=== PATIENT | male | born 1955 | race Caucasian/White ===

== ENCOUNTER 2018-10-24 15:37 | Inpatient (IN) | payer MEDICAID ==
[2018-10-24 16:14] LABS: AADO2 Arterial 124.2 mmHg (7.0-24.0); Allen Test ACCEPTAB; Arterial Base Excess 6.8 mmol/L (-3.0-3); Arterial Blood Gas Oxygen Sat 90.2 mmHG (95.0-98.0); Arterial COHb 2.6 % (0.0-3.0); Arterial Fraction of Oxyhgb 87.6 % (93.0-99.0); Arterial MetHb 0.3 % (0.0-1.5); Arterial pCO2 61.9 mmhg (35-45); MODE NASAL CANNULA; Site Left Radial
[2018-10-24 16:18] LABS: ADD MAN DIFF? NO
[2018-10-24] MEDS: ALBUTEROL 0.5% (NEB) 2.5 MG/0.5 ML AMP INH (16:19)
[2018-10-24] MEDS: IPRATROPIUM (NEB) 0.5 MG/2.5 ML AMP INH (16:19)
[2018-10-24 16:24] LABS: BASOPHIL # 0.1 10^3/ul (0.0-0.1); EOSINOPHILS # 0.1 10^3/ul (0.0-0.5); EOSINOPHILS % 0.4 % (0.0-7.0); HEMATOCRIT 55.2 % (42.0-52.0); HEMOGLOBIN 17.5 g/dl (14.0-18.0); LYMPHOCYTES # 3.7 10^3/ul (0.8-2.9); LYMPHOCYTES % 28.7 % (15.0-51.0); MEAN CORPUSCULAR HEMOGLOBIN 30.3 pg (29.0-33.0); MEAN CORPUSCULAR HGB CONC 31.7 g/dl (32.0-37.0); MEAN CORPUSCULAR VOLUME 95.7 fl (82.0-101.0); MEAN PLATELET VOLUME 10.7 fl (7.4-10.4); MONOCYTE # 1.4 10^3/ul (0.3-0.9); NEUTROPHIL # 7.3 10^3/ul (1.6-7.5); NEUTROPHILS % 56.7 % (39.0-77.0); NUCLEATED RED BLOOD CELLS # 0.1 10^3/ul (0.0-0.0); NUCLEATED RED BLOOD CELLS% 0.4 /100WBC (0.0-0.0); PLATELET COUNT 246 10^3/UL (140-415); POSITIVE DIFF @See below; RED BLOOD COUNT 5.77 10^6/ul (4.70-6.10); RED CELL DISTRIBUTION WIDTH 13.6 % (11.5-14.5)
[2018-10-24] MEDS: METHYLPREDNISOLONE 125 MG INJ IV (16:27)
[2018-10-24 16:38] LABS: ALANINE AMINOTRANSFERASE 42 IU/L (13-69); ALBUMIN 4.2 g/dl (3.3-4.9); ALKALINE PHOSPHATASE 65 IU/L (42-121); ANION GAP 11 (5-13); ASPARTATE AMINO TRANSFERASE 43 IU/L (15-46); BILIRUBIN,INDIRECT 0.6 mg/dl (0-1.1); BILIRUBIN,TOTAL 0.6 mg/dl (0.2-1.3); BLOOD UREA NITROGEN 29 mg/dl (7-20); CALCIUM 8.9 mg/dl (8.4-10.2); CARBON DIOXIDE 35 mmol/L (21-31); CHLORIDE 93 mmol/L (97-110); CREATININE 0.78 mg/dl (0.61-1.24); Estimated GFR > 60 mL/min (>60); GLUCOSE 107 mg/dl (70-220); POTASSIUM 4.3 mmol/L (3.5-5.1); SODIUM 139 mmol/L (135-144)
[2018-10-24 16:43] LABS: INR 0.89; PROTIME 12.2 Sec (11.9-14.9)
[2018-10-24 16:47] LABS: B-TYPE NATRIURETIC PEPTIDE 5640 PG/ML (0-125)
[2018-10-24 16:51] LABS: TROPONIN-I 0.047 ng/ml (0.000-0.120)
[2018-10-24 17:38] LABS: ANISOCYTOSIS 1+ (0-0); BASOPHIL #M 0.1 10^3/ul (0.0-0.0); BASOPHILS % (M) 1 % (0-2); EOSINOPHILS % (M) 1 % (0-7); ERYTHROBLAST% (NRBC) (M) 2 % (0-0); GIANT THROMBO% (M) 1 % (0-0); LYMPHOCYTES #M 3.6 10^3/ul (0.8-2.9); LYMPHOCYTES % (M) 28 % (15-51); METAMYELOCYTES #M 0.1 10^3/ul (0.0-0.0); METAMYELOCYTES %M 1 % (0-0); MICROCYTOSIS 1+ (0-0); MONOCYTE #M 0.6 10^3/ul (0.3-0.9); MONOCYTES % (M) 5 % (0-11); PLASMA CELLS #M 0.1 10^3/ul (0.0-0.0); PLASMAC%(M) 1 % (0); PLATELET ESTIMATE NORMAL; POLYCHROMASIA 1+ (0-0); REACTIVE LYMPHOCYTES #M 0.2 10^3/ul (0.0-0.0); REACTIVE LYMPHOCYTES% (M) 2 % (0-0); SEGMENTED NEUTROPHILS (M) % 61 % (39-77); SMUDGE%M 7 % (0-0)
[2018-10-24] MEDS ORDERED: FUROSEMIDE 40 MG INJ (18:08)
[2018-10-24] MEDS: FUROSEMIDE 40 MG INJ IV (18:15)
[2018-10-24] MEDS: LEVOFLOXACIN 750MG/D5W (PMX) 150 ML IVPB (19:07)
[2018-10-24] MEDS ORDERED: ONDANSETRON 4 MG INJ IV ×2 (20:00→20:30)
[2018-10-24] MEDS ORDERED: ACETAMINOPHEN 325 MG TAB PO (20:00)
[2018-10-24] MEDS ORDERED: NACL 0.9% 3 ML SYG IV (20:30)
[2018-10-24] MEDS ORDERED: MAGNESIUM HYDROXIDE 30ML CUP PO (20:30)
[2018-10-24] MEDS ORDERED: LEVALBUTEROL (NEB) 1.25 MG/0.5 ML AMP HHN (20:30)
[2018-10-24] MEDS ORDERED: DOCUSATE SODIUM 100 MG CAP PO (20:30)
[2018-10-24] MEDS: IPRATROPIUM (NEB) 0.5 MG/2.5 ML AMP HHN (21:30)
[2018-10-24] MEDS: LEVALBUTEROL (NEB) 1.25 MG/0.5 ML AMP HHN (21:30)
[2018-10-24 22:36] LABS: CREATINE KINASE 63 IU/L (23-200)
[2018-10-24 22:38] LABS: LACTIC ACID 3.6 mmol/L (0.5-2.0)
[2018-10-24 22:48] LABS: CK INDEX 7.9; CK-MB 4.96 ng/ml (0.0-2.4); TROPONIN-I 0.042 ng/ml (0.000-0.120)
[2018-10-24] MEDS: ALBUMIN HUMAN 25% 100 ML IV (23:13)
[2018-10-24] MEDS: HEPARIN 5,000 UNIT/1 ML VIAL SC (23:27)
[2018-10-25] MEDS: LEVALBUTEROL (NEB) 1.25 MG/0.5 ML AMP HHN ×3 (00:24→08:36)
[2018-10-25] MEDS: IPRATROPIUM (NEB) 0.5 MG/2.5 ML AMP HHN ×3 (00:24→08:36)
[2018-10-25 02:16] LABS: AADO2 Arterial 368.1 mmHg (7.0-24.0); Allen Test ACCEPTAB; Arterial Blood Gas Oxygen Sat 97.8 mmHG (95.0-98.0); Arterial COHb 0.8 % (0.0-3.0); Arterial Fraction of Oxyhgb 96.6 % (93.0-99.0); Arterial HCO3 35.5 mmol/L (22.0-26.0); Arterial MetHb 0.4 % (0.0-1.5); Arterial pCO2 78.3 mmhg (35-45); Blood Gas IEPAP 15/5; Blood Gas PS 10; MODE MASK - BIPAP; Site Right Radial
[2018-10-25 03:09] LABS: ADD MAN DIFF? NO
[2018-10-25 03:15] LABS: WHITE BLOOD COUNT 8.3 10^3/ul (4.8-10.8)
[2018-10-25 03:15] LABS: BASOPHILS % 0.5 % (0.0-2.0); HEMATOCRIT 52.2 % (42.0-52.0); HEMOGLOBIN 16.4 g/dl (14.0-18.0); LYMPHOCYTES # 1.1 10^3/ul (0.8-2.9); LYMPHOCYTES % 13.4 % (15.0-51.0); MEAN CORPUSCULAR HEMOGLOBIN 30.1 pg (29.0-33.0); MEAN CORPUSCULAR HGB CONC 31.4 g/dl (32.0-37.0); MEAN CORPUSCULAR VOLUME 95.8 fl (82.0-101.0); MEAN PLATELET VOLUME 10.2 fl (7.4-10.4); MONOCYTE # 0.2 10^3/ul (0.3-0.9); NEUTROPHIL # 6.7 10^3/ul (1.6-7.5); NEUTROPHILS % 80.9 % (39.0-77.0); NUCLEATED RED BLOOD CELLS% 0.4 /100WBC (0.0-0.0); PLATELET COUNT 238 10^3/UL (140-415); RED BLOOD COUNT 5.45 10^6/ul (4.70-6.10); RED CELL DISTRIBUTION WIDTH 13.8 % (11.5-14.5)
[2018-10-25 03:30] LABS: LACTIC ACID 2.4 mmol/L (0.5-2.0)
[2018-10-25 03:39] LABS: CREATINE KINASE 62 IU/L (23-200)
[2018-10-25 03:40] LABS: MAGNESIUM 1.8 mg/dl (1.7-2.5)
[2018-10-25 03:40] LABS: CHOL/HDL RATIO 4.5 RATIO; CHOLESTEROL 156 mg/dl (100-200); HDL CHOLESTEROL 34 mg/dl (30-78); LDL CHOLESTEROL,CALCULATED 97 mg/dl; TRIGLYCERIDES 124 mg/dl (0-149)
[2018-10-25 03:43] LABS: HEMOGLOBIN A1C 5.8 % (0-5.9)
[2018-10-25 03:50] LABS: CK INDEX 7.1; TROPONIN-I 0.031 ng/ml (0.000-0.120)
[2018-10-25 04:04] LABS: CK-MB 4.42 ng/ml (0.0-2.4)
[2018-10-25 04:22] LABS: ALANINE AMINOTRANSFERASE 37 IU/L (13-69); ALBUMIN 4.1 g/dl (3.3-4.9); ALBUMIN/GLOBULIN RATIO 1.17; ALKALINE PHOSPHATASE 44 IU/L (42-121); ANION GAP 12 (5-13); ASPARTATE AMINO TRANSFERASE 37 IU/L (15-46); BILIRUBIN,INDIRECT 0.3 mg/dl (0-1.1); BILIRUBIN,TOTAL 0.3 mg/dl (0.2-1.3); BLOOD UREA NITROGEN 29 mg/dl (7-20); CALCIUM 8.9 mg/dl (8.4-10.2); CARBON DIOXIDE 35 mmol/L (21-31); CHLORIDE 94 mmol/L (97-110); CREATININE 0.89 mg/dl (0.61-1.24); Estimated GFR > 60 mL/min (>60); GLUCOSE 198 mg/dl (70-220); POTASSIUM 4.6 mmol/L (3.5-5.1); SODIUM 141 mmol/L (135-144); TOTAL PROTEIN 7.6 g/dl (6.1-8.1)
[2018-10-25] MEDS: MAGNESIUM SULFATE 2 GM/50 ML 50 ML IVPB (04:35)
[2018-10-25 04:45] LABS: THYROID STIMULATING HORMONE 0.389 MIU/L (0.465-4.680)
[2018-10-25 05:24] LABS: AADO2 Arterial 409.9 mmHg (7.0-24.0); Allen Test ACCEPTAB; Arterial Base Excess 5.4 mmol/L (-3.0-3); Arterial Blood Gas Oxygen Sat 94.5 mmHG (95.0-98.0); Arterial COHb 0.3 % (0.0-3.0); Arterial Fraction of Oxyhgb 93.8 % (93.0-99.0); Arterial HCO3 35.6 mmol/L (22.0-26.0); Arterial MetHb 0.4 % (0.0-1.5); Arterial pCO2 76.6 mmhg (35-45); Blood Gas IEPAP 18/6; Blood Gas PS 12; MODE MASK - BIPAP; Site Right Radial
[2018-10-25] MEDS: PANTOPRAZOLE (EC) 40 MG TAB PO (06:32)
[2018-10-25] MEDS: HEPARIN 5,000 UNIT/1 ML VIAL SC ×3 (06:39→21:49)
[2018-10-25] MEDS: ASPIRIN (EC) 81 MG TAB PO (08:07)
[2018-10-25] MEDS: predniSONE 20 MG TAB PO (08:07)
[2018-10-25] MEDS: BENAZEPRIL 40 MG TAB PO (08:07)
[2018-10-25] MEDS: FUROSEMIDE 40 MG INJ IV ×2 (08:08→17:46)
[2018-10-25 09:02] LABS: CREATINE KINASE 61 IU/L (23-200)
[2018-10-25 09:15] LABS: CK INDEX 6.6; TROPONIN-I 0.029 ng/ml (0.000-0.120)
[2018-10-25 09:28] LABS: CK-MB 4.05 ng/ml (0.0-2.4)
[2018-10-25 10:12] LABS: FREE T4 (FREE THYROXINE) 1.51 ng/dl (0.78-2.44)
[2018-10-25 11:00] LABS: AADO2 Arterial 362.8 mmHg (7.0-24.0); Allen Test ACCEPTAB; Arterial Base Excess 8.3 mmol/L (-3.0-3); Arterial Blood Gas Oxygen Sat 97.7 mmHG (95.0-98.0); Arterial COHb 0.4 % (0.0-3.0); Arterial Fraction of Oxyhgb 96.9 % (93.0-99.0); Arterial MetHb 0.4 % (0.0-1.5); Arterial pCO2 90.2 mmhg (35-45); Blood Gas IEPAP 24/8; Blood Gas PS 16; MODE MASK - BIPAP; Site Right Radial
[2018-10-25] MEDS ORDERED: ALBUTEROL 0.083% (NEB) 2.5 MG/3 ML AMP HHN (11:30)
[2018-10-25] MEDS: METOPROLOL (XL) 25 MG TAB PO ×3 (11:48→21:37)
[2018-10-25] MEDS: METHYLPREDNISOLONE 40 MG INJ IV ×2 (11:48→21:36)
[2018-10-25] MEDS: LEVOFLOXACIN 750MG/D5W (PMX) 150 ML IVPB (12:00)
[2018-10-25] MEDS: ALBUTEROL/IPRATROPIUM (NEB) 3 ML AMP HHN ×3 (12:50→20:02)
[2018-10-25] MEDS: MAGNESIUM SULFATE 1 GM/D5W 100 ML IVPB (13:03)
[2018-10-25] MEDS ORDERED: MAGNESIUM SULFATE 3 GM in DEXTROSE 5% 100 ML IVPB (14:00)
[2018-10-25 14:10] LABS: AADO2 Arterial 116.9 mmHg (7.0-24.0); Allen Test ACCEPTAB; Arterial Base Excess 7.5 mmol/L (-3.0-3); Arterial COHb 0.5 % (0.0-3.0); Arterial Fraction of Oxyhgb 87.3 % (93.0-99.0); Arterial MetHb 0.3 % (0.0-1.5); Arterial pCO2 65.8 mmhg (35-45); Blood Gas IEPAP 24/8; Blood Gas PS 16; MODE MASK - BIPAP; Site Right Radial
[2018-10-25] MEDS: CEFTRIAXONE 2 GM/50 ML (PMX) 50 ML IVPB (14:19)
[2018-10-25 16:29] LABS: ADD UMIC YES; UR BILIRUBIN (Dip) NEGATIVE (NEGATIVE); UR BLOOD (Dip) NEGATIVE (NEGATIVE); UR CLARITY CLEAR (CLEAR); UR COLOR STRAW (YELLOW); UR GLUCOSE (Dip) NEGATIVE (NEGATIVE); UR KETONES (Dip) NEGATIVE (NEGATIVE); UR LEUKOCYTE ESTERASE (Dip) NEGATIVE Leu/ul (NEGATIVE); UR NITRITE (Dip) NEGATIVE (NEGATIVE); UR TOTAL PROTEIN (Dip) 1+ mg/dl (NEGATIVE); UR UROBILINOGEN (Dip) 0.2 E.U./dL mg/dL (NEGATIVE); URINE PH (Dip) 6 (5.0-9.0)
[2018-10-25 16:30] LABS: UR ASCORBIC ACID 40 mg/dL (NEGATIVE)
[2018-10-25 16:41] LABS: UR RBC 0 /HPF (0-5); UR WBC 1 /HPF (0-5)
[2018-10-25] MEDS: ACETAMINOPHEN 325 MG TAB PO (18:50)
[2018-10-25] MEDS: ATORVASTATIN 20 MG TAB PO (21:37)
[2018-10-26] MEDS: ALBUTEROL/IPRATROPIUM (NEB) 3 ML AMP HHN ×6 (01:15→20:17)
[2018-10-26 05:17] LABS: ADD MAN DIFF? NO
[2018-10-26 05:24] LABS: WHITE BLOOD COUNT 16.7 10^3/ul (4.8-10.8)
[2018-10-26 05:24] LABS: BASOPHILS % 0.2 % (0.0-2.0); HEMATOCRIT 52.8 % (42.0-52.0); HEMOGLOBIN 16.6 g/dl (14.0-18.0); LYMPHOCYTES # 1.3 10^3/ul (0.8-2.9); LYMPHOCYTES % 7.9 % (15.0-51.0); MEAN CORPUSCULAR HEMOGLOBIN 30.6 pg (29.0-33.0); MEAN CORPUSCULAR HGB CONC 31.4 g/dl (32.0-37.0); MEAN CORPUSCULAR VOLUME 97.4 fl (82.0-101.0); MEAN PLATELET VOLUME 10.8 fl (7.4-10.4); MONOCYTE # 1.2 10^3/ul (0.3-0.9); MONOCYTES % 7.1 % (0.0-11.0); NEUTROPHIL # 13.8 10^3/ul (1.6-7.5); NUCLEATED RED BLOOD CELLS% 0.1 /100WBC (0.0-0.0); PLATELET COUNT 259 10^3/UL (140-415); RED BLOOD COUNT 5.42 10^6/ul (4.70-6.10)
[2018-10-26] MEDS: PANTOPRAZOLE (EC) 40 MG TAB PO (05:51)
[2018-10-26] MEDS: HEPARIN 5,000 UNIT/1 ML VIAL SC ×3 (05:51→21:07)
[2018-10-26] MEDS: FUROSEMIDE 40 MG INJ IV ×2 (05:51→17:17)
[2018-10-26 05:56] LABS: ALANINE AMINOTRANSFERASE 36 IU/L (13-69); ALBUMIN 3.7 g/dl (3.3-4.9); ALBUMIN/GLOBULIN RATIO 1.08; ALKALINE PHOSPHATASE 54 IU/L (42-121); ANION GAP 10 (5-13); ASPARTATE AMINO TRANSFERASE 30 IU/L (15-46); BILIRUBIN,INDIRECT 0.3 mg/dl (0-1.1); BILIRUBIN,TOTAL 0.3 mg/dl (0.2-1.3); BLOOD UREA NITROGEN 39 mg/dl (7-20); CALCIUM 8.9 mg/dl (8.4-10.2); CARBON DIOXIDE 37 mmol/L (21-31); CHLORIDE 92 mmol/L (97-110); CREATININE 1.18 mg/dl (0.61-1.24); Estimated GFR > 60 mL/min (>60); GLUCOSE 134 mg/dl (70-220); POTASSIUM 4.8 mmol/L (3.5-5.1); SODIUM 139 mmol/L (135-144); TOTAL PROTEIN 7.1 g/dl (6.1-8.1)
[2018-10-26] MEDS: ACETAMINOPHEN 325 MG TAB PO (06:38)
[2018-10-26] MEDS: METHYLPREDNISOLONE 40 MG INJ IV ×2 (08:26→21:03)
[2018-10-26] MEDS: ASPIRIN (EC) 81 MG TAB PO (08:27)
[2018-10-26] MEDS: BENAZEPRIL 10 MG TAB PO ×2 (08:27→21:08)
[2018-10-26] MEDS: MONTELUKAST 10 MG TAB PO ×2 (08:27→21:07)
[2018-10-26] MEDS: SPIRONOLACTONE 25 MG TAB PO (08:27)
[2018-10-26] MEDS: METOPROLOL (XL) 25 MG TAB PO ×2 (08:28→21:08)
[2018-10-26 08:33] LABS: AADO2 Arterial 118.7 mmHg (7.0-24.0); Allen Test ACCEPTAB; Arterial Base Excess 9.1 mmol/L (-3.0-3); Arterial Blood Gas Oxygen Sat 90.6 mmHG (95.0-98.0); Arterial COHb 0.4 % (0.0-3.0); Arterial Fraction of Oxyhgb 90.1 % (93.0-99.0); Arterial HCO3 37.6 mmol/L (22.0-26.0); Arterial MetHb 0.2 % (0.0-1.5); Arterial pCO2 65.5 mmhg (35-45); MODE NASAL CANNULA; Site Right Radial
[2018-10-26] MEDS: FLUTICASONE/VILANTEROL 100-25 INH (10:50)
[2018-10-26] MEDS: TIOTROPIUM 18 MCG CAPSULE INHA DEV INH (10:52)
[2018-10-26 11:08] LABS: HEPATITIS B SURFACE ANTIGEN NEGATIVE (NEGATIVE)
[2018-10-26 11:25] LABS: HEPATITIS C VIRAL ANTIBODY NEGATIVE (NEGATIVE)
[2018-10-26] MEDS: CEFTRIAXONE 2 GM/50 ML (PMX) 50 ML IVPB (14:37)
[2018-10-26] MEDS: MAGNESIUM SULFATE 2 GM/50 ML 50 ML IVPB (16:18)
[2018-10-26] MEDS: ATORVASTATIN 20 MG TAB PO (21:07)
[2018-10-27] MEDS: ALBUTEROL/IPRATROPIUM (NEB) 3 ML AMP HHN ×6 (00:32→20:06)
[2018-10-27] MEDS: ACETAMINOPHEN 325 MG TAB PO ×3 (01:24→22:16)
[2018-10-27] MEDS: PANTOPRAZOLE (EC) 40 MG TAB PO (05:48)
[2018-10-27] MEDS: FUROSEMIDE 40 MG INJ IV ×2 (05:49→18:06)
[2018-10-27] MEDS: HEPARIN 5,000 UNIT/1 ML VIAL SC ×3 (06:02→20:45)
[2018-10-27 08:10] LABS: ADD MAN DIFF? NO
[2018-10-27 08:22] LABS: WHITE BLOOD COUNT 19.5 10^3/ul (4.8-10.8)
[2018-10-27 08:22] LABS: ABNORMAL IP MESSAGE 1; BASOPHILS % 0.2 % (0.0-2.0); HEMATOCRIT 55.1 % (42.0-52.0); HEMOGLOBIN 17.4 g/dl (14.0-18.0); LYMPHOCYTES # 1.4 10^3/ul (0.8-2.9); MEAN CORPUSCULAR HEMOGLOBIN 30.4 pg (29.0-33.0); MEAN CORPUSCULAR HGB CONC 31.6 g/dl (32.0-37.0); MEAN CORPUSCULAR VOLUME 96.2 fl (82.0-101.0); MEAN PLATELET VOLUME 10.8 fl (7.4-10.4); MONOCYTE # 1.8 10^3/ul (0.3-0.9); NEUTROPHIL # 16.1 10^3/ul (1.6-7.5); NEUTROPHILS % 82.3 % (39.0-77.0); PLATELET COUNT 297 10^3/UL (140-415); POSITIVE DIFF @See below; RED BLOOD COUNT 5.73 10^6/ul (4.70-6.10); RED CELL DISTRIBUTION WIDTH 14.3 % (11.5-14.5)
[2018-10-27 08:30] LABS: ALANINE AMINOTRANSFERASE 31 IU/L (13-69); ALBUMIN 3.8 g/dl (3.3-4.9); ALBUMIN/GLOBULIN RATIO 1.11; ALKALINE PHOSPHATASE 51 IU/L (42-121); ANION GAP 10 (5-13); ASPARTATE AMINO TRANSFERASE 75 IU/L (15-46); BILIRUBIN,INDIRECT 0.4 mg/dl (0-1.1); BILIRUBIN,TOTAL 0.4 mg/dl (0.2-1.3); BLOOD UREA NITROGEN 51 mg/dl (7-20); CALCIUM 9.2 mg/dl (8.4-10.2); CHLORIDE 91 mmol/L (97-110); CREATININE 1.12 mg/dl (0.61-1.24); Estimated GFR > 60 mL/min (>60); GLUCOSE 118 mg/dl (70-220); POTASSIUM 4.7 mmol/L (3.5-5.1); SODIUM 141 mmol/L (135-144); TOTAL PROTEIN 7.2 g/dl (6.1-8.1)
[2018-10-27 08:34] LABS: CARBON DIOXIDE 40 mmol/L (21-31)
[2018-10-27 08:35] LABS: MAGNESIUM 2.6 mg/dl (1.7-2.5)
[2018-10-27] MEDS: MAGNESIUM OXIDE 400 MG TAB PO (09:15)
[2018-10-27] MEDS: SPIRONOLACTONE 25 MG TAB PO (09:15)
[2018-10-27] MEDS: BENAZEPRIL 10 MG TAB PO ×2 (09:15→20:33)
[2018-10-27] MEDS: TIOTROPIUM 18 MCG CAPSULE INHA DEV INH (09:16)
[2018-10-27] MEDS: ASPIRIN (EC) 81 MG TAB PO (09:16)
[2018-10-27] MEDS: METOPROLOL (XL) 25 MG TAB PO ×2 (09:16→11:33)
[2018-10-27] MEDS: FLUTICASONE/VILANTEROL 100-25 INH (09:16)
[2018-10-27] MEDS: CEFTRIAXONE 2 GM/50 ML (PMX) 50 ML IVPB (14:42)
[2018-10-27] MEDS: MONTELUKAST 10 MG TAB PO (20:32)
[2018-10-27] MEDS: ATORVASTATIN 20 MG TAB PO (20:32)
[2018-10-27] MEDS: METOPROLOL (XL) 50 MG TAB PO (20:33)
[2018-10-27] MEDS: METHYLPREDNISOLONE 40 MG INJ IV (20:34)
[2018-10-28] MEDS: ALBUTEROL/IPRATROPIUM (NEB) 3 ML AMP HHN ×6 (01:17→20:20)
[2018-10-28] MEDS: FUROSEMIDE 40 MG INJ IV (06:23)
[2018-10-28] MEDS: PANTOPRAZOLE (EC) 40 MG TAB PO (06:24)
[2018-10-28] MEDS: HEPARIN 5,000 UNIT/1 ML VIAL SC ×3 (06:52→20:48)
[2018-10-28 07:24] LABS: ADD MAN DIFF? NO
[2018-10-28 07:29] LABS: WHITE BLOOD COUNT 15.2 10^3/ul (4.8-10.8)
[2018-10-28 07:29] LABS: BASOPHIL # 0.1 10^3/ul (0.0-0.1); BASOPHILS % 0.4 % (0.0-2.0); EOSINOPHILS % 0.1 % (0.0-7.0); HEMATOCRIT 56.4 % (42.0-52.0); HEMOGLOBIN 17.7 g/dl (14.0-18.0); LYMPHOCYTES # 1.1 10^3/ul (0.8-2.9); MEAN CORPUSCULAR HEMOGLOBIN 30.4 pg (29.0-33.0); MEAN CORPUSCULAR HGB CONC 31.4 g/dl (32.0-37.0); MEAN CORPUSCULAR VOLUME 96.9 fl (82.0-101.0); MEAN PLATELET VOLUME 10.8 fl (7.4-10.4); MONOCYTE # 0.8 10^3/ul (0.3-0.9); MONOCYTES % 5.4 % (0.0-11.0); NEUTROPHIL # 12.9 10^3/ul (1.6-7.5); NEUTROPHILS % 84.9 % (39.0-77.0); PLATELET COUNT 289 10^3/UL (140-415); RED BLOOD COUNT 5.82 10^6/ul (4.70-6.10); RED CELL DISTRIBUTION WIDTH 14.2 % (11.5-14.5)
[2018-10-28 07:58] LABS: ALANINE AMINOTRANSFERASE 33 IU/L (13-69); ALBUMIN 3.7 g/dl (3.3-4.9); ALBUMIN/GLOBULIN RATIO 1.15; ALKALINE PHOSPHATASE 49 IU/L (42-121); ASPARTATE AMINO TRANSFERASE 48 IU/L (15-46); BILIRUBIN,INDIRECT 0.5 mg/dl (0-1.1); BILIRUBIN,TOTAL 0.5 mg/dl (0.2-1.3); BLOOD UREA NITROGEN 46 mg/dl (7-20); CALCIUM 9.1 mg/dl (8.4-10.2); CHLORIDE 89 mmol/L (97-110); CREATININE 0.98 mg/dl (0.61-1.24); Estimated GFR > 60 mL/min (>60); GLUCOSE 150 mg/dl (70-220); SODIUM 139 mmol/L (135-144); TOTAL PROTEIN 6.9 g/dl (6.1-8.1)
[2018-10-28 08:44] LABS: ANION GAP 11 (5-13)
[2018-10-28 08:45] LABS: CARBON DIOXIDE 39 mmol/L (21-31)
[2018-10-28] MEDS: METOPROLOL (XL) 50 MG TAB PO ×2 (08:55→20:39)
[2018-10-28] MEDS: SPIRONOLACTONE 25 MG TAB PO (08:55)
[2018-10-28] MEDS: ASPIRIN (EC) 81 MG TAB PO (08:56)
[2018-10-28] MEDS: MAGNESIUM OXIDE 400 MG TAB PO (08:56)
[2018-10-28] MEDS: BENAZEPRIL 10 MG TAB PO ×2 (08:56→20:39)
[2018-10-28] MEDS: METHYLPREDNISOLONE 40 MG INJ IV ×2 (08:57→20:40)
[2018-10-28] MEDS: ACETAMINOPHEN 325 MG TAB PO (09:05)
[2018-10-28] MEDS: METOPROLOL 100 MG TAB PO ×2 (10:38→15:19)
[2018-10-28] MEDS: TIOTROPIUM 18 MCG CAPSULE INHA DEV INH (10:51)
[2018-10-28] MEDS: FLUTICASONE/VILANTEROL 100-25 INH (11:25)
[2018-10-28] MEDS: METOPROLOL 50 MG TAB PO ×2 (12:30→13:46)
[2018-10-28 12:35] LABS: AADO2 Arterial 35.3 mmHg (7.0-24.0); Allen Test ACCEPTAB; Arterial Base Excess 8.6 mmol/L (-3.0-3); Arterial Blood Gas Oxygen Sat 88.6 mmHG (95.0-98.0); Arterial COHb 0.3 % (0.0-3.0); Arterial Fraction of Oxyhgb 88.1 % (93.0-99.0); Arterial HCO3 34.8 mmol/L (22.0-26.0); Arterial MetHb 0.3 % (0.0-1.5); Arterial pCO2 50.8 mmhg (35-45); MODE ROOM AIR; Site Right Radial
[2018-10-28] MEDS: CEFTRIAXONE 2 GM/50 ML (PMX) 50 ML IVPB (13:21)
[2018-10-28] MEDS: IOHEXOL 350MG/ML 50 ML BTL (15:44)
[2018-10-28] MEDS: METOPROLOL 5 MG INJ (15:53)
[2018-10-28] MEDS: NITROGLYCERIN AEROSOL (4.9 GM) (15:53)
[2018-10-28] MEDS: IOHEXOL 100 ML (16:19)
[2018-10-28] MEDS: SOD CHLORIDE 0.9% 100 ML (16:19)
[2018-10-28] MEDS: ATORVASTATIN 20 MG TAB PO (20:39)
[2018-10-28] MEDS: MONTELUKAST 10 MG TAB PO (20:39)
[2018-10-29] MEDS: ALBUTEROL/IPRATROPIUM (NEB) 3 ML AMP HHN ×7 (00:04→21:30)
[2018-10-29] MEDS: PANTOPRAZOLE (EC) 40 MG TAB PO (05:59)
[2018-10-29] MEDS: HEPARIN 5,000 UNIT/1 ML VIAL SC ×3 (06:07→21:29)
[2018-10-29 07:02] LABS: ADD MAN DIFF? NO
[2018-10-29] MEDS: ACETAMINOPHEN 325 MG TAB PO ×2 (07:05→17:21)
[2018-10-29 07:08] LABS: ABNORMAL IP MESSAGE 1; BASOPHIL # 0.1 10^3/ul (0.0-0.1); BASOPHILS % 0.3 % (0.0-2.0); HEMATOCRIT 56.2 % (42.0-52.0); HEMOGLOBIN 17.8 g/dl (14.0-18.0); LYMPHOCYTES # 1.7 10^3/ul (0.8-2.9); LYMPHOCYTES % 9.7 % (15.0-51.0); MEAN CORPUSCULAR HGB CONC 31.7 g/dl (32.0-37.0); MEAN CORPUSCULAR VOLUME 94.8 fl (82.0-101.0); MONOCYTES % 11.7 % (0.0-11.0); NEUTROPHILS % 76.2 % (39.0-77.0); PLATELET COUNT 284 10^3/UL (140-415); POSITIVE DIFF @See below; RED BLOOD COUNT 5.93 10^6/ul (4.70-6.10); RED CELL DISTRIBUTION WIDTH 14.1 % (11.5-14.5)
[2018-10-29 07:23] LABS: ANION GAP 7 (5-13); BLOOD UREA NITROGEN 48 mg/dl (7-20); CHLORIDE 88 mmol/L (97-110); CREATININE 0.88 mg/dl (0.61-1.24); Estimated GFR > 60 mL/min (>60); GLUCOSE 106 mg/dl (70-220); MAGNESIUM 2.5 mg/dl (1.7-2.5); SODIUM 135 mmol/L (135-144)
[2018-10-29 07:26] LABS: CARBON DIOXIDE 40 mmol/L (21-31)
[2018-10-29] MEDS: SPIRONOLACTONE 25 MG TAB PO (08:31)
[2018-10-29] MEDS: MAGNESIUM OXIDE 400 MG TAB PO (08:31)
[2018-10-29] MEDS: BENAZEPRIL 10 MG TAB PO ×2 (08:31→21:20)
[2018-10-29] MEDS: METOPROLOL (XL) 50 MG TAB PO (08:32)
[2018-10-29] MEDS: ASPIRIN (EC) 81 MG TAB PO (08:32)
[2018-10-29] MEDS: predniSONE 20 MG TAB PO (08:33)
[2018-10-29] MEDS: FLUTICASONE/VILANTEROL 100-25 INH (08:33)
[2018-10-29] MEDS: FUROSEMIDE 40 MG INJ IV (08:33)
[2018-10-29] MEDS: TIOTROPIUM 18 MCG CAPSULE INHA DEV INH (09:00)
[2018-10-29] MEDS: CEFTRIAXONE 2 GM/50 ML (PMX) 50 ML IVPB (14:13)
[2018-10-29] MEDS: ATORVASTATIN 20 MG TAB PO (21:19)
[2018-10-29] MEDS: MONTELUKAST 10 MG TAB PO (21:20)
[2018-10-29] MEDS: METOPROLOL (XL) 100 MG TAB PO (21:20)
[2018-10-30] MEDS: ALBUTEROL/IPRATROPIUM (NEB) 3 ML AMP HHN ×5 (01:00→17:00)
[2018-10-30] MEDS: PANTOPRAZOLE (EC) 40 MG TAB PO (06:08)
[2018-10-30] MEDS: HEPARIN 5,000 UNIT/1 ML VIAL SC ×2 (06:16→14:12)
[2018-10-30 06:22] LABS: ADD MAN DIFF? NO
[2018-10-30 06:27] LABS: ABNORMAL IP MESSAGE 1; BASOPHIL # 0.1 10^3/ul (0.0-0.1); BASOPHILS % 0.4 % (0.0-2.0); EOSINOPHILS % 0.2 % (0.0-7.0); HEMOGLOBIN 18.6 g/dl (14.0-18.0); LYMPHOCYTES # 3.5 10^3/ul (0.8-2.9); LYMPHOCYTES % 20.9 % (15.0-51.0); MEAN CORPUSCULAR HEMOGLOBIN 30.6 pg (29.0-33.0); MEAN CORPUSCULAR HGB CONC 32.6 g/dl (32.0-37.0); MEAN CORPUSCULAR VOLUME 93.9 fl (82.0-101.0); MEAN PLATELET VOLUME 10.3 fl (7.4-10.4); MONOCYTE # 2.2 10^3/ul (0.3-0.9); MONOCYTES % 13.3 % (0.0-11.0); NEUTROPHIL # 10.6 10^3/ul (1.6-7.5); NEUTROPHILS % 63.1 % (39.0-77.0); PLATELET COUNT 268 10^3/UL (140-415); POSITIVE DIFF @See below; RED BLOOD COUNT 6.07 10^6/ul (4.70-6.10); RED CELL DISTRIBUTION WIDTH 13.7 % (11.5-14.5)
[2018-10-30 06:27] LABS: WHITE BLOOD COUNT 16.8 10^3/ul (4.8-10.8)
[2018-10-30 07:11] LABS: ANION GAP 10 (5-13); BLOOD UREA NITROGEN 51 mg/dl (7-20); CALCIUM 9.3 mg/dl (8.4-10.2); CARBON DIOXIDE 36 mmol/L (21-31); CHLORIDE 89 mmol/L (97-110); CREATININE 0.92 mg/dl (0.61-1.24); Estimated GFR > 60 mL/min (>60); GLUCOSE 93 mg/dl (70-220); MAGNESIUM 2.5 mg/dl (1.7-2.5); SODIUM 135 mmol/L (135-144)
[2018-10-30] MEDS: predniSONE 20 MG TAB PO (08:46)
[2018-10-30] MEDS: MAGNESIUM OXIDE 400 MG TAB PO (08:46)
[2018-10-30] MEDS: BENAZEPRIL 10 MG TAB PO ×2 (08:47→20:27)
[2018-10-30] MEDS: FUROSEMIDE 40 MG TAB PO (08:47)
[2018-10-30] MEDS: SPIRONOLACTONE 25 MG TAB PO (08:47)
[2018-10-30] MEDS: ASPIRIN (EC) 81 MG TAB PO (08:48)
[2018-10-30] MEDS: METOPROLOL (XL) 100 MG TAB PO ×2 (08:48→20:27)
[2018-10-30] MEDS: FLUTICASONE/VILANTEROL 100-25 INH (08:50)
[2018-10-30] MEDS: TIOTROPIUM 18 MCG CAPSULE INHA DEV INH (10:32)
[2018-10-30] MEDS: FLUTICASONE/VILANTEROL 200-25 INH DEVICE INH (12:00)
[2018-10-30] MEDS: ACETAMINOPHEN 325 MG TAB PO (14:09)
[2018-10-30] MEDS: CEFTRIAXONE 2 GM/50 ML (PMX) 50 ML IVPB (14:09)
[2018-10-30] MEDS: MONTELUKAST 10 MG TAB PO (20:27)
[2018-10-30] MEDS: ATORVASTATIN 20 MG TAB PO (20:27)
[2018-10-31] MEDS ORDERED: SPIRONOLACTONE 25 MG TAB PO (09:00)
[2018-10-31] MEDS ORDERED: predniSONE 20 MG TAB PO (09:00)
[2018-10-31] MEDS ORDERED: FUROSEMIDE 40 MG TAB PO (09:00)
== END 2018-10-30 20:46 | disposition home or self-care (01) | DRG 291 ==
LOC: ICU 10-25 11:18 → TEL 10-27 → E/R 15:37 → TEL 10-26 23:35
PROC: 4A133R1 Monitoring of Arterial Saturation, Peripheral, Percutaneous Approach (ICD-10-PCS; principal; 2018-10-24)
PROC: 5A09357 Assistance with Respiratory Ventilation, Less than 24 Consecutive Hours, Continuous Positive Airway Pressure (ICD-10-PCS; 2018-10-24)
DX: I11.0 Hypertensive heart disease with heart failure (principal); J96.22 Acute and chronic respiratory failure with hypercapnia; J96.21 Acute and chronic respiratory failure with hypoxia; J44.1 Chronic obstructive pulmonary disease with (acute) exacerbation; E87.2 Acidosis; I47.2 Ventricular tachycardia; I50.23 Acute on chronic systolic (congestive) heart failure; I42.9 Cardiomyopathy, unspecified; E66.9 Obesity, unspecified; Z68.38 Body mass index [BMI] 38.0-38.9, adult; E78.5 Hyperlipidemia, unspecified; F17.210 Nicotine dependence, cigarettes, uncomplicated; I25.10 Atherosclerotic heart disease of native coronary artery without angina pectoris; G47.33 Obstructive sleep apnea (adult) (pediatric); Z79.82 Long term (current) use of aspirin
CPT/HCPCS: 36415; 36600; 71045; 71046; 75571; 75574; 80048; 80053; 80061; 81001; 82550; 82553; 82803; 83036; 83605; 83735; 83880; 84439; 84443; 84481; 84484; 85025; 85610; 86803; 87040; 87081; 87086; 87340; 93005; 93306; 94640; 94644; 94660; 96374; 96375; 97162; 99291-25

== ENCOUNTER 2019-05-04 11:21 | Inpatient (IN) | payer OTHER ==
[2019-05-04] MEDS: SOD CHLORIDE 0.9% 500 ML IV (17:20)
[2019-05-04] MEDS ORDERED: ZOLPIDEM 5 MG TAB PO (18:00)
[2019-05-04] MEDS ORDERED: NACL 0.9% 3 ML SYG IV (18:00)
[2019-05-04] MEDS ORDERED: HYDROCODONE/APAP (5/325) TAB PO (18:00)
[2019-05-04] MEDS ORDERED: DOCUSATE SODIUM 100 MG CAP PO (18:00)
[2019-05-04] MEDS ORDERED: ONDANSETRON 4 MG INJ IV (18:00)
[2019-05-04] MEDS ORDERED: morphine 2 MG INJ IV (18:00)
[2019-05-04] MEDS: APIXABAN 5 MG TABLET PO (18:39)
[2019-05-04] MEDS: AMIODARONE 900 MG in DEXTROSE 5% 482 ML IV (18:39)
[2019-05-04] MEDS ORDERED: LEVALBUTEROL (NEB) 0.31 MG/3 ML AMP HHN (20:30)
[2019-05-04] MEDS: METOPROLOL (XL) 100 MG TAB PO (22:21)
[2019-05-04] MEDS: MONTELUKAST 10 MG TAB PO (22:21)
[2019-05-05] MEDS: APIXABAN 5 MG TABLET PO ×2 (08:51→20:29)
[2019-05-05] MEDS: ATORVASTATIN 20 MG TAB PO (08:51)
[2019-05-05] MEDS: SPIRONOLACTONE 25 MG TAB PO (08:52)
[2019-05-05] MEDS: FUROSEMIDE 40 MG TAB PO (08:52)
[2019-05-05] MEDS: FLUTICASONE/VILANTEROL 200-25 INH DEVICE INH (08:52)
[2019-05-05] MEDS: TIOTROPIUM 18 MCG CAPSULE INHA DEV INH (08:53)
[2019-05-05] MEDS: METOPROLOL (XL) 100 MG TAB PO ×2 (09:00→20:29)
[2019-05-05] MEDS: NICOTINE (14 MG/24 HR) PATCH TRANSDERM (18:27)
[2019-05-05] MEDS: MONTELUKAST 10 MG TAB PO (20:29)
[2019-05-05] MEDS: ACETAMINOPHEN 325 MG TAB PO (20:30)
[2019-05-06] MEDS ORDERED: ATROPINE 1 MG INJ IV
[2019-05-06] MEDS: ACETAMINOPHEN 325 MG TAB PO (08:42)
[2019-05-06] MEDS: ATORVASTATIN 20 MG TAB PO (08:42)
[2019-05-06] MEDS: APIXABAN 5 MG TABLET PO (08:42)
[2019-05-06] MEDS: TIOTROPIUM 18 MCG CAPSULE INHA DEV INH (08:43)
[2019-05-06] MEDS: FLUTICASONE/VILANTEROL 200-25 INH DEVICE INH (08:43)
[2019-05-06] MEDS: NICOTINE (14 MG/24 HR) PATCH TRANSDERM (08:43)
[2019-05-06] MEDS: METOPROLOL (XL) 50 MG TAB PO (09:00)
== END 2019-05-06 12:30 | disposition home or self-care (01) | DRG 308 ==
LOC: E/R 11:21 → TEL 14:17
DX: I48.0 Paroxysmal atrial fibrillation (principal); J96.21 Acute and chronic respiratory failure with hypoxia; J96.22 Acute and chronic respiratory failure with hypercapnia; I50.23 Acute on chronic systolic (congestive) heart failure; N17.9 Acute kidney failure, unspecified; I42.9 Cardiomyopathy, unspecified; I11.0 Hypertensive heart disease with heart failure; I95.9 Hypotension, unspecified; J44.9 Chronic obstructive pulmonary disease, unspecified; E66.01 Morbid (severe) obesity due to excess calories; G47.33 Obstructive sleep apnea (adult) (pediatric); F17.210 Nicotine dependence, cigarettes, uncomplicated; Z79.82 Long term (current) use of aspirin; Z68.35 Body mass index [BMI] 35.0-35.9, adult; Z71.3 Dietary counseling and surveillance
CPT/HCPCS: 36415; 71045; 76775; 80048; 80061; 83036; 83735; 83880; 84100; 84436; 84443; 84479; 84484; 85025; 85610; 85730; 93005; 93306; 99285-25